=== PATIENT | female | born 1965 | race Caucasian/White ===

== ENCOUNTER 2022-12-25 08:53 | Outpatient (CLI) | payer BC | END 2022-12-25 08:54 | disposition home or self-care (01) | LOC: SCSCT 08:53 | PROVIDERS: ATTEND Family Medicine | DX: S32.9XXA Fracture of unspecified parts of lumbosacral spine and pelvis, initial encounter for closed fracture (principal); K57.30 Diverticulosis of large intestine without perforation or abscess without bleeding; N32.89 Other specified disorders of bladder | CPT/HCPCS: 72192 ==

== ENCOUNTER 2025-02-08 14:54 | Outpatient (CLI) | payer OTHER | END 2025-02-08 14:55 | disposition home or self-care (01) | LOC: BICMAMMO 14:54 | PROVIDERS: ATTEND Family Medicine | DX: Z12.31 Encounter for screening mammogram for malignant neoplasm of breast (principal); M85.89 Other specified disorders of bone density and structure, multiple sites; M81.0 Age-related osteoporosis without current pathological fracture | CPT/HCPCS: 77063; 77067; 77080 ==